=== PATIENT | male | born 1950 | race African-American/Black ===

== ENCOUNTER 2017-07-15 19:04 | Inpatient (IN) | payer MEDICARE ==
[~2017-07-15] VITALS: Ht 177.8 cm; Wt 93.0 kg
[~2017-07-15 19:04] MED LIST: CETIRIZINE10 MG PO; FLEXERIL PO; LORTAB 10-325 M1 TAB PO; NAPROSYN250 MG PO; PRILOSEC10 MG PO; PRILOSEC20 MG PO
--- NOTE | 2017-07-15 19:18 | NUR ---
ADVISED PT OF BUSY ER STATUS, SENT PT BACK TO WAITING ROOM
--- NOTE | 2017-07-15 20:05 | NUR ---
Pt ambulated to room # 8 with steady gait.
[2017-07-15 20:45] LABS: HEMATOCRIT 50.1 % (39.0-50.0); IMMATURE GRANULOCYTES 0.4 % (0.0-1.0); MEAN CELL VOLUME 89.8 fL CALC (80.0-100.0); MEAN CORPUSCULAR HGB 30.5 pG CALC (26.0-32.0); MEAN CORPUSCULAR HGB CONC 33.9 g/L CALC (32.0-36.0); NEUT# 9.17 thou/uL (1.82-7.42); RED BLOOD COUNT 5.58 mill/uL (4.70-6.10); RED CELL DISTRI WIDTH 12.2 % (11.5-15.5)
[2017-07-15 20:56] LABS: ALBUMIN 4.2 g/dL (3.2-5.0); ALKALINE PHOSPHATASE 81 u/l (38-126); AMYLASE 152 u/l (30-110); ANION GAP 21 (6-22 (CALC)); BILIRUBIN, TOTAL 2.1 mg/dL (0.0-1.4); BUN 16 mg/dL (8-23); BUN/CREATININE RATIO 14 (12-20 (CALC)); CARBON DIOXIDE 28 mmol/l (22-30); CHLORIDE 98 mmol/l (95-108); CREATININE 1.1 mg/dL (0.7-1.3); GFR > 60 ML/MIN (>=60 (CALC)); GFR FOR AFR.AMER. > 60 ML/MIN (>=60 (CALC)); LIPASE 168 u/l (23-300); POTASSIUM 4.3 mmol/l (3.5-5.1); SGOT/AST 32 u/l (19-48); SGPT/ALT 47 u/l (11-66); SODIUM 143 mmol/l (137-146); TOTAL PROTEIN 8.3 g/dL (6.3-8.2)
--- NOTE | 2017-07-15 21:42 | NUR ---
PT HAS RETURNED FROM RADIOLOGY. ENCOURAGED TO OBTAIN A URINE SAMPLE.
--- NOTE | 2017-07-15 21:49 | NUR ---
URINE SENT. VOIDED [address] [facility] GUILLEN. FEELS MUCH BETTER. ABD SOFT/NON TENDER. BS + X 4. BBS CLEAR. STATES PAIN IS NOW A 5/10
[2017-07-15 22:07] LABS: URINE BLOOD DIPSTICK NEGATIVE (NEGATIVE); URINE COLOR YELLOW; URINE GLUCOSE - DIPSTICK NEGATIVE (NEGATIVE); URINE KETONE 15 mg/dL (NEGATIVE); URINE LEUK ESTERASE NEGATIVE (NEGATIVE); URINE NITRITE - DIPSTICK NEGATIVE (Negative); URINE PROTEIN - DIPSTICK TRACE mg/dL (NEG-TRACE)
[2017-07-15 22:10] LABS: URINE BILIRUBIN - DIPSTICK NEGATIVE (NEGATIVE); URINE CLARITY CLEAR
--- NOTE | 2017-07-15 23:26 | NUR ---
NG INSERTED TO LIS...100 CC OF BROWN LIQUID. PT TOLERATING. PLACED ON MONITOR FOR FLOOR AND EKG DONE. REPORT CALLED TO JENNY/MS
--- NOTE | 2017-07-15 23:34 | NUR ---
TO FLOOR VIA STRETCHER WITH TELEMTRY/NG
[2017-07-15 23:40] VITALS: BP 132/79
--- NOTE | 2017-07-15 23:40 | NUR ---
PT ARRIVED TO UNIT VIA STRETCHER WITH ER STAFF. AMBUALTED TO BED INDEPENDENTLY; ALERT AND ORIENTED. C/O MILD ABDOMINAL PAIN AND REQUESTS PAIN MEDICATION. RESPIRATIONS EVEN AND UNLABORED ON ROOM AIR. TELE ON. NG TUBE IN PLACE TO LEFT NARE UPON ARRIVAL; CONNECTED TO LIS. IV FLUIDS INITIATED AND INFUSING WITHOUT DIFFICULTY. PT OREINTED TO ROOM AND CALL LIGHT SYSTEM. PLAN OF CARE REVIEWED. ENCOURAGED TO VERBALIZE CONCERNS. STATES UNDERSTANDING. SAFETY MEASURES IN PLACE. CALL LIGHT WITHIN REACH.
[2017-07-16 03:30] VITALS: BP 119/75
--- NOTE | 2017-07-16 04:40 | NUR ---
PT ASLEEP AT THIS TIME WITH NO SIGNS OF DISTRESS. RESPIRATIONS EVEN AND UNLABORED ON ROOM AIR. NO ACUTE CHANGES IN CONDITION THROUGHOUT THE NIGHT. NG TUBE CONTINUES TO DRAIN CLEAR GASTRIC CONTENT WITH SMALL AMOUNT OF BROWN. PAIN IS MANAGED WITH MORPHINE. SAFETY MEASURES IN PLACE. CALL LIGHT WITHIN REACH.
[2017-07-16 09:15] VITALS: BP 133/80
--- NOTE | 2017-07-16 09:15 | NUR ---
FAMILY IN THE ROOM IV SITE IS FREE FROM REDNESS OR EDEMA. HR IS REG, NGT AT LIS TOLERATING WELL. TOLERATED THE CONTRAST. ABD IS SOFT AND DISTENDED. BREATH SOUNDS ARE CLEAR, AND DIMINISHED.
[2017-07-16 11:30] VITALS: BP 120/74
[2017-07-16 15:32] VITALS: BP 125/75
[2017-07-16 19:35] VITALS: BP 128/76
--- NOTE | 2017-07-16 20:00 | NUR ---
BEDSIDE REPORT RECEIVED FROM ALMA KELLEY. PT SITTING UP IN BED WITH AT BEDSIDE; ALERT AND ORIENTED. DENIES PAIN, ONLY C/O DISCOMFORT AT NG TUBE INSERTION SITE. RESPIRATIONS EVEN AND UNLABORED ON ROOM AIR. PLAN OF CARE REVIEWED. PT ENCOURAGED TO VERBALIZE CONCERNS. STATES UNDERSTANDING AND REQUESTS A SHOWER. SAFETY MEASURES IN PLACE. CALL LIGHT WITHIN REACH.
--- NOTE | 2017-07-16 21:00 | NUR ---
PT HAD SHOWER; NG TUBE CONNECTED BACK TO LIS AND SECURED TO NOSE WITH NEW TAPE. IV FLUIDS RECONNECTED AND TELE BACK ON.
[2017-07-17] VITALS (9 sets, daily range): BP systolic 121–146; BP diastolic 66–85
--- NOTE | 2017-07-17 00:30 | NUR ---
PT RESTING WITH EYES CLOSED AND NO SIGNS OF DISTRESS; AWAKENS TO VERBAL STIMULI. ABT ADMINISTERED WITH NO ADVERSE EFFECTS NOTED. PT CONTINUES TO DENY PAIN. RESPIRATIONS EVEN AND UNLABORED ON ROOM AIR. IV FLUIDS INFUSING; SITE APPEARS HEALTHY. NG TUBE IN PLACE TO LEFT NARE TO LIS; SECURED TO NOSE. NO REQUESTS OR CONCERNS AT THIS TIME. CALL LIGHT WITHIN REACH.
--- NOTE | 2017-07-17 04:00 | NUR ---
PT ASLEEP AT THIS TIME WITH NO SIGNS OF DISTRESS NOTED. RESPIRTIONS EVEN AND UNLABORED. NO ACUTE CHANGES IN CONDITION THROUGHOUT THE NIGHT. NG TUBE CONTINUES TO DRAIN CLEAR GASTRIC CONTENT. SAFETY MEASURES IN PLACE. CALL LIGHT WITHIN REACH.
[2017-07-17 05:02] LABS: ANION GAP 16 (6-22 (CALC)); BUN 15 mg/dL (8-23); BUN/CREATININE RATIO 13 (12-20 (CALC)); CARBON DIOXIDE 24 mmol/l (22-30); CHLORIDE 108 mmol/l (95-108); CREATININE 1.1 mg/dL (0.7-1.3); GFR > 60 ML/MIN (>=60 (CALC)); GFR FOR AFR.AMER. > 60 ML/MIN (>=60 (CALC)); MAGNESIUM 2.1 mg/dL (1.6-2.3); POTASSIUM 4.3 mmol/l (3.5-5.1); SODIUM 144 mmol/l (137-146)
[2017-07-17 05:29] LABS: IMMATURE GRANULOCYTES 0.3 % (0.0-1.0); MEAN CELL VOLUME 91.3 fL CALC (80.0-100.0); MEAN CORPUSCULAR HGB 30.9 pG CALC (26.0-32.0); MEAN CORPUSCULAR HGB CONC 33.8 g/L CALC (32.0-36.0); NEUT# 5.52 thou/uL (1.82-7.42); RED BLOOD COUNT 4.7 mill/uL (4.70-6.10); RED CELL DISTRI WIDTH 12.2 % (11.5-15.5)
[2017-07-17 05:39] LABS: HEMATOCRIT 42.9 % (39.0-50.0); HEMOGLOBIN 14.5 g/dl (14.0-18.0)
--- NOTE | 2017-07-17 07:55 | NUR ---
ASSESSMENT IS COMPLETED: NGT IN LIS, MINIMAL AMOUNT OF CLEAR LIQUID , IV SITE IS FREE FROM REDNESS OR EDEMA, HR IS REG, PULSES ARE STRONG X4, ABD IS SOFT WITH ACTIVE BS, CONTINUE TO OBSERVE AND MONITOR.
--- NOTE | 2017-07-17 11:00 | NUR ---
PT TRANSPORTED TO OR VIA STRETCHER WITH NGT IN PLACE. IV SITE IS FREE FROM REDNESS OR EDEMA.
--- NOTE | 2017-07-17 12:15 | NUR ---
PT REMAINS IN OR,
--- NOTE | 2017-07-17 13:00 | NUR ---
PT RETURNED FROM OR VIA STRETCHER . NO NGT ,IV SITE REMAINS FREE FROM REDNESS OR EDEMA.
--- NOTE | 2017-07-17 16:00 | NUR ---
PT IS RESTING IN BED WITH NO DISTRESS NOTED. IV SITE IS FREE FROM REDNESS OR EDEMA.
[2017-07-17] MEDS ORDERED: SUCRALFATE1 GM/10 ML PO (17:08)
[2017-07-17] MEDS ORDERED: PROTONIX40 M2 PO (17:08)
--- NOTE | 2017-07-17 19:33 | NUR ---
IV SITE DISCONTINUED CATHETER INTACT NO REDNESS OR EDEMA. DISCHARGE INSTRUCTIONS GIVEN. Discharge instructions given. Patient verbalizes understanding of same. Discharged in stable condition via Wheelchair to Home with family. All belongings sent with pt.
== END 2017-07-17 19:00 | disposition home or self-care (01) | DRG 384 ==
LOC: ED 19:04 → ED-I 20:10 → ED 20:10 → ED-I 22:19 → ED 22:39 → MS2 22:40
PROVIDERS: Emergency Medicine; Nurse Practitioner Family; ADMIT Internal Medicine; ATTEND Internal Medicine
PROC: 0DB68ZX Excision of Stomach, Via Natural or Artificial Opening Endoscopic, Diagnostic (ICD-10-PCS; principal; 2017-07-17)
DX: K25.9 Gastric ulcer, unspecified as acute or chronic, without hemorrhage or perforation (principal); K29.70 Gastritis, unspecified, without bleeding; K44.9 Diaphragmatic hernia without obstruction or gangrene
CPT/HCPCS: S0164

== ENCOUNTER → 2018-04-09 | Outpatient (REF) | payer MEDICARE ==
[~2018-04-09] VITALS: Ht 177.8 cm; Wt 93.4 kg
[~2018-04-09] MED LIST changes: +PREVACID30 M2 PO; +PROTONIX40 M2 PO; +SINGULAIR10 MG PO; +SUCRALFATE1 GM/10 ML PO; +VITAMIN D3 COMPLETE PO; +VITAMIN E400 UNIT PO
[2018-04-09 17:31] VITALS: BP 130/81
== END | disposition home or self-care (01) ==
LOC: ORM 08:45 → PO 08:54
PROVIDERS: ATTEND Internal Medicine Gastroenterology
DX: Z01.818 Encounter for other preprocedural examination (principal); Z12.11 Encounter for screening for malignant neoplasm of colon; K59.00 Constipation, unspecified; Z80.0 Family history of malignant neoplasm of digestive organs; K62.5 Hemorrhage of anus and rectum; K21.9 Gastro-esophageal reflux disease without esophagitis; Z91.09 Other allergy status, other than to drugs and biological substances; Z98.890 Other specified postprocedural states; Z97.2 Presence of dental prosthetic device (complete) (partial)

== ENCOUNTER 2018-04-11 06:24 | Day surgery (SDC) | payer MEDICARE ==
[~2018-04-11] VITALS: Ht 177.8 cm; Wt 93.4 kg
[2018-04-11 09:17] VITALS: BP 111/78
== END 2018-04-11 09:30 | disposition home or self-care (01) ==
LOC: ENDO 06:24 → ORM 17:00 → ENDO 17:00
PROVIDERS: ATTEND Internal Medicine Gastroenterology
PROC: 0DJD8ZZ Inspection of Lower Intestinal Tract, Via Natural or Artificial Opening Endoscopic (ICD-10-PCS; principal; 2018-04-11)
DX: K57.31 Diverticulosis of large intestine without perforation or abscess with bleeding (principal); K64.4 Residual hemorrhoidal skin tags; K64.8 Other hemorrhoids; Z80.0 Family history of malignant neoplasm of digestive organs; K59.00 Constipation, unspecified

== ENCOUNTER 2024-03-19 08:51 | Day surgery (SDC) | payer MEDICARE ==
[~2024-03-19] VITALS: Ht 177.8 cm; Wt 92.1 kg
[~2024-03-19 08:51] MED LIST changes: +METHIMAZOLE5 MG PO; +OMEPRAZOLE20 MG PO
[2024-03-19] MEDS ORDERED: FAMOTIDINE 10MG/ML 2ML SDV IV ONE (09:06)
[2024-03-19] MEDS ORDERED: SODIUM CHLORIDE 0.9% 1,000 ML IV ONE (09:07)
[2024-03-19 11:09] VITALS: BP 115/87
[2024-03-19] MEDS ORDERED: STERILE WATER FOR IRRIGATION 1,000 ML BTL IR ONE (13:07)
[2024-03-19] MEDS ORDERED: PROPOFOL 200 MG/20 ML VIAL IV ONE (15:51)
[2024-03-19] MEDS ORDERED: GLYCOPYRROLATE 0.2 MG/ML IV ONE (15:51)
[2024-03-19] MEDS ORDERED: LIDOCAINE HCL 2% 2ML SDV IV ONE (15:51)
== END 2024-03-19 11:18 | disposition home or self-care (01) ==
LOC: ORM 08:51
PROVIDERS: ATTEND Surgery
PROC: 0DJD8ZZ Inspection of Lower Intestinal Tract, Via Natural or Artificial Opening Endoscopic (ICD-10-PCS; principal; 2024-03-19)
DX: Z12.11 Encounter for screening for malignant neoplasm of colon (principal); K64.8 Other hemorrhoids; K21.9 Gastro-esophageal reflux disease without esophagitis; G58.9 Mononeuropathy, unspecified; R73.03 Prediabetes; Z80.0 Family history of malignant neoplasm of digestive organs
CPT/HCPCS: J1596